=== PATIENT | male | born 1970 | race Caucasian/White ===

== ENCOUNTER 2024-11-16 13:22 | Inpatient (IN) | payer MEDICARE, OTHER ==
[~2024-11-16] VITALS: Ht 167.6 cm; Wt 47.6 kg
[2024-11-16 13:42] LABS: PLATELET COUNT (AUTO) 199 K/uL (152-348); RED BLOOD CELL COUNT(AUTO) 4.09 MIL/uL (4.06-5.63); RED CELL DISTRIBUTION WIDTH 14.0 % (12.1-16.2); WHITE BLOOD COUNT (AUTO) 4.7 K/uL (3.6-10.2)
[2024-11-16 13:52] LABS: CREATININE 0.7 mg/dL (0.6-1.3); SODIUM SERUM 143 mmol/L (136-145); UREA NITROGEN, BLOOD 12 mg/dL (7-18)
[2024-11-16] MEDS ORDERED: HYDR-3972 PO (13:54)
[2024-11-16] MEDS ORDERED: LIDO30AD10 TP (13:54)
[2024-11-16] MEDS ORDERED: MULT-213 PO (13:54)
[2024-11-16] MEDS ORDERED: OMEP40CA21 PO (13:54)
[2024-11-16] MEDS ORDERED: DOCU100T2 PO (13:54)
[2024-11-16] MEDS ORDERED: ACET325T53 PO (13:54)
[2024-11-16] MEDS ORDERED: SERT50TA PO (13:54)
[2024-11-16] MEDS ORDERED: ASPI-1169 PO (13:54)
[2024-11-16] MEDS ORDERED: CRAN450T9 PO (13:54)
[2024-11-16] MEDS ORDERED: AMLO-212 PO (13:54)
[2024-11-16 13:57] LABS: ASPARTATE AMINOTRANSFERASE 13 U/L (15-37); TOTAL PROTEIN, SERUM 6.6 g/dL (6.4-8.2)
[2024-11-16 14:00] LABS: ETHANOL < 3 MG/DL (0-10)
[2024-11-16] MEDS ORDERED: MAGNESIUM HYDROXIDE 30 ML LIQUID UDC PO PRN (16:45)
[2024-11-16] MEDS ORDERED: LORAZEPAM 1 MG TABLET PO PRN ×2 (16:45→21:15)
[2024-11-16] MEDS ORDERED: ACETAMINOPHEN 325 MG TABLET PO PRN (16:45)
[2024-11-16] MEDS ORDERED: TEMAZEPAM 7.5 MG CAPSULE PO PRN (16:45)
[2024-11-16] MEDS ORDERED: MAG HYDROX/AL HYDROX/SIMETH 30 ML LIQUID UDC PO PRN (16:45)
[2024-11-16 16:47] VITALS: BP 110/72; TEMP 98.1; O2SAT 97
[2024-11-16] MEDS ORDERED: ACETAMINOPHEN 325 MG TABLET-SA PATIENTS-PAIN ONLY PO PRN (20:30)
[2024-11-16] MEDS: AMLODIPINE 5 MG TABLET PO SCH (21:00)
[2024-11-16] MEDS ORDERED: TEMAZEPAM 15 MG CAPSULE PO PRN ×3 (21:15→21:30)
[2024-11-16] MEDS: LORAZEPAM 1 MG TABLET PO PRN (21:50)
[2024-11-17] MEDS: PANTOPRAZOLE SODIUM 40 MG TABLET.DR PO SCH (07:33)
[2024-11-17 08:19] VITALS: BP 112/84; TEMP 97.6
[2024-11-17 08:20] LABS: ASPARTATE AMINOTRANSFERASE 11.0 U/L (15-37); CREATININE 0.9 mg/dL (0.6-1.3); SODIUM SERUM 138.0 mmol/L (136-145); TOTAL PROTEIN, SERUM 7.5 g/dL (6.4-8.2); UREA NITROGEN, BLOOD 35.0 mg/dL (7-18)
[2024-11-17] MEDS ORDERED: Medication Not On Formulary EA (Cranberry Fruit (Cranberry) 450 MG) PO SCH (09:00)
[2024-11-17] MEDS: LIDOCAINE 5% PATCH TD SCH (09:06)
[2024-11-17] MEDS: MULTIVITAMINS,THERAPEUTIC TABLET PO SCH (09:06)
[2024-11-17] MEDS: DOCUSATE SODIUM 100 MG CAPSULE PO SCH (09:06)
[2024-11-17] MEDS: ASPIRIN 81 MG TAB.CHEW PO SCH (09:09)
[2024-11-17] MEDS: SERTRALINE HCL 50 MG TABLET PO SCH (10:58)
[2024-11-17 15:30] LABS: PLATELET COUNT (AUTO) 223 K/uL (152-348); RED BLOOD CELL COUNT(AUTO) 4.62 MIL/uL (4.06-5.63); RED CELL DISTRIBUTION WIDTH 13.8 % (12.1-16.2); WHITE BLOOD COUNT (AUTO) 6.7 K/uL (3.6-10.2)
[2024-11-17 16:47] VITALS: BP 120/76; TEMP 97; O2SAT 97
[2024-11-17] MEDS ORDERED: LORA-259 PO (18:53)
[2024-11-17] MEDS ORDERED: PANT40TA2 PO (18:53)
[2024-11-17] MEDS ORDERED: TEMA15CA5 PO (18:54)
[2024-11-17] MEDS ORDERED: MAG355OR18 PO (18:56)
[2024-11-17] MEDS ORDERED: MAGN400O6 PO (18:57)
== END 2024-11-17 18:15 | disposition short-term general hospital (02) | DRG 885 ==
LOC: ER 13:22 → GPS 15:43
PROVIDERS: ADMIT Psychiatry & Neurology Psychiatry; ATTEND Registered Nurse Psychiatric/Mental Health
DX: F29 Unspecified psychosis not due to a substance or known physiological condition (principal); N18.9 Chronic kidney disease, unspecified; R45.1 Restlessness and agitation; I69.354 Hemiplegia and hemiparesis following cerebral infarction affecting left non-dominant side; Z68.1 Body mass index [BMI] 19.9 or less, adult; I13.0 Hypertensive heart and chronic kidney disease with heart failure and stage 1 through stage 4 chronic kidney disease, or unspecified chronic kidney disease; I69.391 Dysphagia following cerebral infarction; R13.12 Dysphagia, oropharyngeal phase; R62.7 Adult failure to thrive; K21.9 Gastro-esophageal reflux disease without esophagitis; I50.9 Heart failure, unspecified; E78.5 Hyperlipidemia, unspecified; Z79.899 Other long term (current) drug therapy; Z79.82 Long term (current) use of aspirin; M62.522 Muscle wasting and atrophy, not elsewhere classified, left upper arm; R45.6 Violent behavior; R41.89 Other symptoms and signs involving cognitive functions and awareness
CPT/HCPCS: 36415; 71045; 83605; 85025; 87040; A4606; A4663; G0480

== ENCOUNTER 2024-11-17 16:18 | Inpatient (IN) | payer MEDICARE, OTHER ==
[~2024-11-17] VITALS: Ht 167.6 cm; Wt 61.8 kg
[~2024-11-17 16:18] MED LIST: ACET325T53 PO; AMLO-212 PO; ASPI-1169 PO; CRAN450T9 PO; DOCU100T2 PO; HYDR-3972 PO; LIDO30AD10 TP; MULT-213 PO; OMEP40CA21 PO
[2024-11-17] MEDS ORDERED: LORA-259 PO (18:53)
[2024-11-17] MEDS ORDERED: PANT40TA2 PO (18:53)
[2024-11-17] MEDS ORDERED: TEMA15CA5 PO (18:54)
[2024-11-17] MEDS ORDERED: SERT50TA PO (18:54)
[2024-11-17] MEDS ORDERED: MAG355OR18 PO (18:56)
[2024-11-17] MEDS ORDERED: MAGN400O6 PO (18:57)
[2024-11-17] MEDS ORDERED: ALBUTEROL SULFATE 2.5 MG/3 ML NEBU NEB PRN (19:30)
[2024-11-17] MEDS ORDERED: ONDANSETRON 4 MG/2 ML VIAL IV PRN (19:30)
[2024-11-17] MEDS ORDERED: MAGNESIUM HYDROXIDE 30 ML LIQUID UDC PO PRN (19:30)
[2024-11-17] MEDS ORDERED: IPRATROPIUM BROMIDE 0.5 MG/2.5 ML NEBU NEB PRN (19:30)
[2024-11-17] MEDS ORDERED: ACETAMINOPHEN 325 MG TABLET PO PRN (19:30)
[2024-11-17 19:55] VITALS: BP 99/61; TEMP 97.9; O2SAT 95
[2024-11-17 19:55] LABS: PLATELET COUNT (AUTO) 228 K/uL (152-348); RED BLOOD CELL COUNT(AUTO) 4.56 MIL/uL (4.06-5.63); RED CELL DISTRIBUTION WIDTH 14.1 % (12.1-16.2); WHITE BLOOD COUNT (AUTO) 8.1 K/uL (3.6-10.2)
[2024-11-17 20:04] LABS: CREATININE 0.6 mg/dL (0.6-1.3); SODIUM SERUM 142 mmol/L (136-145); UREA NITROGEN, BLOOD 18 mg/dL (7-18)
[2024-11-18] MEDS ORDERED: CEFEPIME HCL 2 GM VIAL ONE ×2 (00:04→02:09)
[2024-11-18] MEDS: CEFEPIME HCL 2 GM in IV DEXTROSE 5% 100 ML IV SCH ×2 (00:22→17:19)
[2024-11-18 04:00] VITALS: BP 103/70; TEMP 98.5; O2SAT 97
[2024-11-18] MEDS: PANTOPRAZOLE SODIUM 40 MG TABLET.DR PO SCH (06:02)
[2024-11-18 06:54] LABS: PLATELET COUNT (AUTO) 214 K/uL (152-348); RED BLOOD CELL COUNT(AUTO) 4.21 MIL/uL (4.06-5.63); RED CELL DISTRIBUTION WIDTH 14.1 % (12.1-16.2); WHITE BLOOD COUNT (AUTO) 8.3 K/uL (3.6-10.2)
[2024-11-18 07:24] LABS: CREATININE 0.7 mg/dL (0.6-1.3); SODIUM SERUM 142.0 mmol/L (136-145); UREA NITROGEN, BLOOD 21.0 mg/dL (7-18)
[2024-11-18 08:53] LABS: CREATINE KINASE, TOTAL 26.0 U/L (39-308)
[2024-11-18] MEDS ORDERED: INSULIN REGULAR, HUMAN 1000 UNIT/10 ML VIAL SQ PRN (09:00)
[2024-11-18] MEDS ORDERED: DEXTROSE 50% 50 ML DISP.SYRIN IV PRN (09:00)
[2024-11-18] MEDS ORDERED: MAG HYDROX/AL HYDROX/SIMETH 30 ML LIQUID UDC PO PRN (11:15)
[2024-11-18] MEDS ORDERED: ACETAMINOPHEN 325 MG TABLET-SA PATIENTS-PAIN ONLY PO PRN (11:15)
[2024-11-18] MEDS ORDERED: LORAZEPAM 1 MG TABLET PO PRN (11:15)
[2024-11-18] MEDS ORDERED: MAGNESIUM HYDROXIDE 30 ML LIQUID UDC PO PRN (11:15)
[2024-11-18] MEDS: BLOOD SUGAR DIAGNOSTIC 1 EACH STRIP VI SCH (11:24)
[2024-11-18 11:35] VITALS: BP 90/60; TEMP 98.2; O2SAT 96
[2024-11-18] MEDS ORDERED: ACETAMINOPHEN 325 MG TABLET PO PRN (11:45)
[2024-11-18] MEDS: DOCUSATE SODIUM 100 MG CAPSULE PO SCH (12:20)
[2024-11-18] MEDS: SERTRALINE HCL 50 MG TABLET PO SCH (12:21)
[2024-11-18 15:47] VITALS: BP 94/67; TEMP 98.5; O2SAT 95
[2024-11-18 19:27] VITALS: BP 93/57; TEMP 98.2; O2SAT 96
[2024-11-18] MEDS: AMLODIPINE 5 MG TABLET PO SCH (21:00)
[2024-11-19 05:47] VITALS: BP 97/60; TEMP 98.9; O2SAT 95
[2024-11-19 06:38] LABS: PLATELET COUNT (AUTO) 198 K/uL (152-348); RED BLOOD CELL COUNT(AUTO) 4.15 MIL/uL (4.06-5.63); RED CELL DISTRIBUTION WIDTH 14.0 % (12.1-16.2); WHITE BLOOD COUNT (AUTO) 7.0 K/uL (3.6-10.2)
[2024-11-19 06:59] LABS: CREATININE 0.6 mg/dL (0.6-1.3); SODIUM SERUM 142 mmol/L (136-145); UREA NITROGEN, BLOOD 28 mg/dL (7-18)
[2024-11-19] MEDS ORDERED: PANTOPRAZOLE SODIUM 40 MG TABLET.DR PO SCH (07:00)
[2024-11-19] MEDS: LIDOCAINE 5% PATCH TD SCH (08:07)
[2024-11-19] MEDS: MULTIVITAMINS,THERAPEUTIC TABLET PO SCH (08:07)
[2024-11-19] MEDS: ASPIRIN 81 MG TAB.CHEW PO SCH (08:07)
[2024-11-19] MEDS ORDERED: Medication Not On Formulary EA (Multivitamins W-Minerals (Multivitamin With Minerals) 1 PO SCH (09:00)
[2024-11-19 11:22] VITALS: BP 102/64; TEMP 98; O2SAT 96
[2024-11-19 16:09] VITALS: BP 96/61; TEMP 98.1; O2SAT 94
[2024-11-19 19:29] VITALS: BP 100/68; TEMP 98.4; O2SAT 97
[2024-11-19] MEDS: TEMAZEPAM 15 MG CAPSULE PO PRN (23:18)
[2024-11-20 04:40] VITALS: BP 116/78; TEMP 98; O2SAT 95
[2024-11-20 07:14] LABS: PLATELET COUNT (AUTO) 182 K/uL (152-348); RED BLOOD CELL COUNT(AUTO) 3.86 MIL/uL (4.06-5.63); RED CELL DISTRIBUTION WIDTH 14.2 % (12.1-16.2); WHITE BLOOD COUNT (AUTO) 5.4 K/uL (3.6-10.2)
[2024-11-20 07:30] LABS: CREATININE 0.5 mg/dL (0.6-1.3); SODIUM SERUM 142 mmol/L (136-145); UREA NITROGEN, BLOOD 20 mg/dL (7-18)
[2024-11-20 12:00] VITALS: BP 103/72; TEMP 97.3; O2SAT 97
[2024-11-20 16:08] VITALS: BP 96/53; TEMP 97.8; O2SAT 96
== END 2024-11-20 16:20 | DRG 206 ==
LOC: MEDSURG3 16:18
PROVIDERS: ADMIT Nurse Practitioner Family; ATTEND Nurse Practitioner Family
DX: J98.11 Atelectasis (principal); D68.59 Other primary thrombophilia; G93.40 Encephalopathy, unspecified; I69.354 Hemiplegia and hemiparesis following cerebral infarction affecting left non-dominant side; J91.8 Pleural effusion in other conditions classified elsewhere; I69.391 Dysphagia following cerebral infarction; R13.12 Dysphagia, oropharyngeal phase; R26.81 Unsteadiness on feet; K21.9 Gastro-esophageal reflux disease without esophagitis; M15.9 Polyosteoarthritis, unspecified; I69.322 Dysarthria following cerebral infarction; E78.5 Hyperlipidemia, unspecified; D64.9 Anemia, unspecified; F41.9 Anxiety disorder, unspecified; E11.22 Type 2 diabetes mellitus with diabetic chronic kidney disease; I12.9 Hypertensive chronic kidney disease with stage 1 through stage 4 chronic kidney disease, or unspecified chronic kidney disease; N18.9 Chronic kidney disease, unspecified; F32.A Depression, unspecified; F29 Unspecified psychosis not due to a substance or known physiological condition; I69.398 Other sequelae of cerebral infarction
CPT/HCPCS: 36415; 70450; 71045; 71250; 76604; 83735; 84100; 84443; 85025; 85730; 86140; 87040; 97535-GO-CO; A4663; G0378; J0692; J1815; J7040